=== PATIENT | male | born 1980 | race Caucasian/White ===

== ENCOUNTER 2019-05-05 08:32 | Emergency (ER) | payer OTHER ==
[~2019-05-05] VITALS: Ht 182.9 cm; Wt 96.6 kg
[2019-05-05 08:42] VITALS: BP 157/95
--- NOTE | 2019-05-05 08:59 | PHYS DOC ---
Past History Past Medical History: No Pertinent History Past Surgical History: Other Additional Past Surgical Histo: left wrist fx repair Alcohol Use: Occasionally Drug Use: None Adult General Chief Complaint Chief Complaint: SORE THROAT HPI HPI 38-year-old male presents with 4 day history of sore throat. The patient has been having a worsening sore throat over this period of time. He is finding it very difficult to swallow even fluids due to the pain. He believes he is dehydrated. He has also had fevers up to 103. They have been amenable to ibuprofen. The patient has had one episode of vomiting and some loose stool, but believes that has resolved. He has no other complaints at this time. Review of Systems Review of Systems Constitutional: Fever[] Eyes: Denies change in visual acuity, redness, or eye pain [] HENT: sore throat [] Respiratory: Denies cough or shortness of breath [] Cardiovascular: No additional information not addressed in HPI [] GI: nausea, vomiting. Denies abdominal pain, bloody stools or diarrhea [] : Denies dysuria or hematuria [] Musculoskeletal: Denies back pain or joint pain [] Integument: Denies rash or skin lesions [] Neurologic: Denies headache, focal weakness or sensory changes [] Endocrine: Denies polyuria or polydipsia [] All other systems were reviewed and found to be within normal limits, except as documented in this note. Current Medications Current Medications Current Medications Medications (Trade) Dose Ordered Sig/Nigel Start Time Stop Time Status Last Admin Dose Admin Ondansetron HCl (Zofran) 4 mg 1X ONCE 05/05/19 09:00 05/05/19 09:01 UNV Sodium Chloride 1,000 ml @ 1,000 mls/hr 1X ONCE 05/05/19 09:00 05/05/19 09:59 UNV Allergies Allergies Allergies Coded Allergies Type Severity Reaction Last Updated Verified No Known Drug Allergies 05/05/19 No Physical Exam Physical Exam Constitutional: Well developed, well nourished, no acute distress, non-toxic appearance. [] HENT: Normocephalic, atraumatic, bilateral external ears normal, oropharynx moist, no oral exudates, nose normal. [] Eyes: PERRLA, EOMI, conjunctiva normal, no discharge. [] Neck: Normal range of motion, no tenderness, supple, no stridor. [] Cardiovascular:Heart rate regular rhythm, no murmur [] Lungs & Thorax: Bilateral breath sounds clear to auscultation [] Abdomen: Bowel sounds normal, soft, no tenderness, no masses, no pulsatile masses. [] Skin: Warm, dry, no erythema, no rash. [] Back: No tenderness, no CVA tenderness. [] Extremities: No tenderness, no cyanosis, no clubbing, ROM intact, no edema. [] Neurologic: Alert and oriented X 3, normal motor function, normal sensory function, no focal deficits noted. [] Psychologic: Affect normal, judgement normal, mood normal. [] Current Patient Data Vital Signs Vital Signs Date Time Temp Pulse Resp B/P (MAP) Pulse Ox O2 Delivery O2 Flow Rate FiO2 05/05/19 08:42 97.9 85 16 99 Room Air EKG EKG [] Radiology/Procedures Radiology/Procedures [] Course & Med Decision Making Course & Med Decision Making Pertinent Labs and Imaging studies reviewed. (See chart for details) The patient's labs are significant for an elevated white count. He is positive for strep. We will treat him with Bicillin injection per his request. I have also given the patient a liter of normal saline due to his decreased fluid intake. His kidney function is within normal limits. He is stable for discharge at this time. [] Dragon Disclaimer Dragon Disclaimer This electronic medical record was generated, in whole or in part, using a voice recognition dictation system. Departure Departure: Impression: Primary Impression: Strep pharyngitis Disposition: HOME, SELF-CARE Condition: STABLE Referrals: [facility] (PCP) Patient Instructions: Strep Throat, [id number] LYSSA HUGHES DO May 05, 2019 08:59
[2019-05-05] MEDS ORDERED: IV NORMAL SALINE 1,000ML 1,000 ML IV ONE (09:00)
[2019-05-05] MEDS ORDERED: ONDANSETRON PF 4 MG/2 ML VIAL. IVP ONE (09:00)
[2019-05-05 09:20] LABS: BASO % 0 % (0-3); EOS # 0.1 x10^3/uL (0.0-0.7); EOS % 0 % (0-3); HEMATOCRIT 40.8 % (39.0-53.0); HEMOGLOBIN 13.7 g/dL (13.0-17.5); LYMPH # 1.1 x10^3/uL (1.0-4.8); LYMPH % 7 % (24-48); MEAN CORPUSCULAR HEMOGLOBIN 30 pg (25-35); MEAN CORPUSCULAR HGB CONC 34 g/dL (31-37); MEAN CORPUSCULAR VOLUME 88 fL (79-100); MONO # 1.3 x10^3/uL (0.0-1.1); MONO % 9 % (0-9); NEUT # 13.4 x10^3uL (1.8-7.7); NEUT % 84 % (31-73); PLATELET COUNT 214 x10^3/uL (140-400); RED BLOOD COUNT 4.62 x10^6/uL (4.30-5.70); RED CELL DISTRIBUTION WIDTH 12.9 % (11.5-14.5); WHITE BLOOD COUNT 15.9 x10^3/uL (4.0-11.0)
[2019-05-05 09:27] LABS: CALCIUM 9.6 mg/dL (8.5-10.1); CREATININE 1.1 mg/dL (0.7-1.3); GFR 75.3; POTASSIUM 3.8 mmol/L (3.5-5.1)
[2019-05-05 09:32] LABS: ALBUMIN 3.9 g/dL (3.4-5.0); ALBUMIN/GLOBULIN RATIO 0.9 (1.0-1.7); TOTAL BILIRUBIN 0.9 mg/dL (0.2-1.0); TOTAL PROTEIN 8.4 g/dL (6.4-8.2)
[2019-05-05] MEDS ORDERED: PENICILLIN G BENZATHINE LA 1,200,000 UNIT/2 ML DISP.SYRIN. IM ONE (09:45)
[2019-05-05 09:57] LABS: % BANDS 11 % (0-9); % EOS 1 % (0-5); % LYMPHS 4 % (24-48); % MONOS 5 % (0-10); % MYELOS 1 % (0-0); % SEGS 78 % (35-66); TOXIC GRANULATION PRESENT; TOXIC VACUOLATION PRESENT
[2019-05-05 09:58] LABS: PLT ESTIMATE ADEQUATE (ADEQUATE)
[2019-05-05 09:59] LABS: POLYCHROMASIA SLIGHT
== END 2019-05-05 09:55 | disposition home or self-care (01) ==
LOC: ER 08:32
DX: J02.0 Streptococcal pharyngitis (principal); B95.0 Streptococcus, group A, as the cause of diseases classified elsewhere; R11.2 Nausea with vomiting, unspecified
CPT/HCPCS: 36415; 80053; 85007; 85025; 87880; 96361; 96372; 96374; 99284; J0561; J2405; J7030